=== PATIENT | male | born 1975 | race African-American/Black ===

== ENCOUNTER 2017-03-29 08:38 | Emergency (ER) | payer MEDICARE ==
[2017-03-29] MEDS: IPRATRPIUM/ALBUTEROL 0.5/2.5MG 3 ML NEBU. NEB (09:38)
[2017-03-29] MEDS: BENZONATATE 100 MG CAPSULE. PO (09:55)
[2017-03-29] MEDS: predniSONE 10 MG TABLET PO (09:56)
[2017-03-29 10:16] LABS: INFLUENZA A PATIENT NEGATIVE (NEGATIVE); INFLUENZA B PATIENT NEGATIVE (NEGATIVE); OBC FLU VALID
== END 2017-03-29 11:07 | disposition home or self-care (01) ==
LOC: ER 08:38
DX: J20.9 Acute bronchitis, unspecified (principal)
CPT/HCPCS: 71046; 87804; 87804-59; 94640; 99285-25; J7512; J7620

== ENCOUNTER 2018-02-06 21:56 | Emergency (ER) | payer MEDICARE ==
[~2018-02-06] VITALS: Ht 188 cm; Wt 97.5 kg
[~2018-02-06 21:56] MED LIST: AZIT250T6 PO; PRED50TA PO; PROAIR HFA8.5 GM INH
[2018-02-06 22:34] VITALS: BP 134/73
[2018-02-06] MEDS ORDERED: FLUORESCEIN OPHTH TEST STRIP. OS ONE (22:45)
[2018-02-06] MEDS ORDERED: SULF5DRO OS (23:21)
--- NOTE | 2018-02-07 06:11 | PHYS DOC ---
Past Medical History Past Medical History: No Pertinent History, Other Additional Past Medical Histor: DEAF Past Surgical History: Other Additional Past Surgical Histo: ORAL Alcohol Use: None Drug Use: None Adult General Chief Complaint Chief Complaint: EYE PROBLEMS HPI HPI Patient is a 42 year old AA male with history of deafness who presents with left eye redness, with matting of eyelids and purulent drainage earlier this evening. No scratch, trauma, foreign body sensation. No change in vision. No other symptoms or complaints. History is obtained by written dialogue[] Review of Systems Review of Systems Review symptoms as per history of present illness. All other review symptoms are negative. All other systems were reviewed and found to be within normal limits, except as documented in this note. Current Medications Current Medications Current Medications Medications (Trade) Dose Ordered Sig/Zahida Start Time Stop Time Status Last Admin Dose Admin Fluorescein Sodium (Ful-Saritha) 1 strip 1X ONCE 02/06/18 22:45 02/06/18 22:46 DC 02/06/18 22:45 1 STRIP Allergies Allergies Allergies Coded Allergies Type Severity Reaction Last Updated Verified No Known Drug Allergies 03/29/17 No Physical Exam Physical Exam Constitutional: Well developed, well nourished, no acute distress, non-toxic appearance. [] HENT: Normocephalic, atraumatic, bilateral external ears normal, oropharynx moist, no oral exudates, nose normal. [] Eyes: PERRLA, EOMI, left eye, conjunctiva injected, minimal matting noted on eyelashes, no foreign bodies present, negative floor insulin uptake, visual acuities noted in nursing notes. [] n [] Neurologic: Alert and oriented, normal motor function, normal sensory function, no focal deficits noted. [] Psychologic: Affect normal, judgement normal, mood normal. [] Current Patient Data Vital Signs Vital Signs Date Time Temp Pulse Resp B/P (MAP) Pulse Ox O2 Delivery O2 Flow Rate FiO2 02/06/18 22:34 98.7 65 18 134/73 (93) 99 Room Air 98.7 EKG EKG [] Radiology/Procedures Radiology/Procedures [] Course & Med Decision Making Course & Med Decision Making Pertinent Labs and Imaging studies reviewed. (See chart for details) [General conjunctivitis. Antibiotic drops prescribed. Recommend PCP follow-up as needed. Return precautions reviewed.] Dragon Disclaimer Dragon Disclaimer This electronic medical record was generated, in whole or in part, using a voice recognition dictation system. Departure Departure Impression: Primary Impression: Bacterial conjunctivitis of left eye Disposition: HOME, SELF-CARE Condition: GOOD Patient Instructions: Bacterial Conjunctivitis, [id number] Additional Instructions: Please apply topical antibiotics to left eye and follow-up with your PCP in 3-5 days if symptoms persist. Discontinue topical antibiotics 2 days after symptoms resolve.. Scripts Sulfacetamide Sodium (BLEPH-10) 5 Ml Drops 2 DROP OS TID, #5 ML Prov: UMESH ZAVALETA DO 02/06/18 UMESH ZAVALETA DO Feb 07, 2018 06:11
== END 2018-02-06 23:41 | disposition home or self-care (01) ==
LOC: ER 21:56
DX: H10.89 Other conjunctivitis (principal)
CPT/HCPCS: 99283